=== PATIENT | male | born 1990 | race Caucasian/White ===

== ENCOUNTER 2021-04-20 08:44 | Outpatient (CLI) | payer OTHER | END 2021-04-20 08:45 | disposition critical access hospital (66) | LOC: EMS 08:44 | DX: M54.50 Low back pain, unspecified (principal); W17.89XA Other fall from one level to another, initial encounter; Y92.89 Other specified places as the place of occurrence of the external cause | CPT/HCPCS: A0425; A0427 ==

== ENCOUNTER 2021-04-20 09:13 | Emergency (ER) | payer OTHER ==
[2021-04-20] MEDS ORDERED: KETOROLAC 30 MG/ML VIAL IVP STA ×2 (09:47→20:21)
[2021-04-20] MEDS ORDERED: SODIUM CHLORIDE 0.9% 1,000 ML IV STA (09:47)
[2021-04-20] MEDS ORDERED: HYDROmorphone 1 MG/ML CARPUJECT IVP STA ×2 (09:47→12:31)
--- NOTE | 2021-04-20 09:50 | ED Physician Documentation ---
PD HPI Fall - Stated complaint Stated Complaint: FALL - Chief complaint Chief Complaint: Trauma Ch/Bk - History obtained from History obtained from: Patient - History of Present Illness Mechanism of injury: Slipped Fall distance: 10 to 15ft (fell from roof about 10 feet, landing on back/torso.) Timing - onset: Today ([employer]) Injury(ies) location: Back (mostly thoracolumbar area but also some pain in mid scapular area. Mild pain in neck. No headache.). No: Head, Chest, Abdomen Quality of pain: Pain, Aching Associated symptoms: Other (mainly pain in back with movement). No: LOC, AMS, Weakness, Paresthesias Worsens with: Movement Contributing factors: No: Anticoagulated, Intoxicated Similar symptoms before: Has not had sx before Recently seen: Not recently seen Review of Systems Constitutional: denies: Fever, Chills Nose: denies: Rhinorrhea / runny nose, Congestion Throat: denies: Sore throat Cardiac: denies: Chest pain / pressure, Palpitations Respiratory: denies: Dyspnea, Cough GI: denies: Abdominal Pain, Nausea, Vomiting Skin: denies: Abrasion (s), Laceration (s) Musculoskeletal: reports: Neck pain, Back pain Neurologic: denies: Focal weakness, Numbness, Confused, Altered mental status, Headache, Head injury, LOC PD PAST MEDICAL HISTORY - Past Medical History Cardiovascular: None Respiratory: None Neuro: None Endocrine/Autoimmune: None Musculoskeletal: None - Present Medications Home Medications: Ambulatory Orders Medication Instructions Recorded Confirmed No Known Home Medications 04/20/21 04/20/21 - Allergies Allergies/Adverse Reactions: Allergies Allergy/AdvReac Type Severity Reaction Status Date / Time amoxicillin Allergy Hives Verified 04/20/21 09:21 PD ED PE NORMAL - Vitals Vital signs reviewed: Yes - General General: Alert and oriented X 3, Well developed/nourished, Other (appears in pain with movement of torso. ) - HEENT HEENT: Atraumatic, PERRL, EOMI - Neck Neck: Supple, no meningeal sign, No adenopathy, Other (mildly tender lower cervical area without deformity. ) - Cardiac Cardiac: RRR, No murmur - Respiratory Respiratory: Clear bilaterally - Abdomen Abdomen: Soft, Non tender - Male Male : Deferred - Rectal Rectal: Deferred - Back Back: No CVA TTP, Other (He is tender in the mid thoracolumbar area without any obvious deformity. No abrasions or bruises seen on logroll.) - Derm Derm: Normal color, Warm and dry - Extremities Extremities: No tenderness to palpate, Normal ROM s pain - Neuro Neuro: Alert and oriented X 3, No motor deficit, No sensory deficit, Normal speech, Other (normal reflexes at knees and elbows. ) Eye Opening: Spontaneous Motor: Obeys Commands Verbal: Oriented GCS Score: 15 Results - Vitals Vitals: Vital Signs - 24 hr 04/20/21 04/20/21 04/20/21 09:14 09:47 11:47 Temperature 36.4 C L Heart Rate 53 L 56 L 68 Respiratory 13 16 20 Rate Blood Pressure 125/80 126/76 122/66 O2 Saturation 96 99 97 04/20/21 04/20/21 13:37 16:12 Temperature Heart Rate 105 H 70 Respiratory 18 14 Rate Blood Pressure 135/79 H 148/92 H O2 Saturation 96 92 Oxygen O2 Source Room air - Labs Labs: Laboratory Tests 04/20/21 04/20/21 10:17 10:17 WBC 10.2 RBC 4.79 Hgb 14.4 Hct 42.2 MCV 88.1 MCH 30.1 MCHC 34.1 RDW 12.0 Plt Count 191 MPV 9.5 Neut # (Auto) 7.9 H Lymph # (Auto) 1.4 L [place] # (Auto) 0.7 Eos # (Auto) 0.1 Baso # (Auto) 0.0 Absolute Nucleated RBC 0.00 Nucleated RBC % 0.0 Sodium 138 Potassium 4.1 Chloride 104 Carbon Dioxide 27 Anion Gap 7.0 BUN 12 Creatinine 1.0 Estimated GFR (MDRD) 87 L Glucose 124 H Calcium 8.5 Total Bilirubin 0.6 AST 21 ALT 21 Alkaline Phosphatase 37 L Total Protein 6.6 L Albumin 4.2 Globulin 2.4 Albumin/Globulin Ratio 1.8 Lipase 30 - Rads (name of study) cervical spine CT Radiology: Prelim report reviewed (no acute process), See rad report chest CT Radiology: Prelim report reviewed (no acute thoracic injury. ), See rad report lumbar spine CT Radiology: Prelim report reviewed (L1 anterior wedge compression deformity with 40% loss of height and retropulsion of bone causing moderate canal narrowing. ), See rad report PD MEDICAL DECISION MAKING - ED course Complexity details: reviewed results (L1 40% compression fracture with some retropulsion. Remains normal neuro exam on repeat after scanning. He is more comfortable after IV pain medicines. At this point I would want consultation with spine surgery.), re-evaluated patient, considered differential, d/w patient, d/w outplacement consultant (Long time awaiting spine surgery evaluation of the imaging and to call back. Transfer center stated they were in surgery. It is now been about 6 or 7 hours waiting specialist evaluation of the images.) Departure - Departure Clinical Impression: Fall from roof Qualifiers: Encounter type: initial encounter Qualified Code(s): W13.2XXA - Fall from, out of or through roof, initial encounter Lumbar compression fracture Qualifiers: Encounter type: initial encounter Lumbar vertebra fracture level: L1 Qualified Code(s): S32.010A - Wedge compression fracture of first lumbar vertebra, initial encounter for closed fracture Condition: Stable Record reviewed to determine appropriate education?: Yes Instructions: ED Fx Comp Vertebral
[2021-04-20 10:36] LABS: ALBUMIN 4.2 g/dL (3.2-5.5); ALBUMIN/GLOBULIN RATIO 1.8 (1.0-2.2); BILIRUBIN,TOTAL 0.6 mg/dL (0.2-1.0); CALCIUM 8.5 mg/dL (8.5-10.3); POTASSIUM 4.1 mmol/L (3.5-5.0); TOTAL PROTEIN 6.6 g/dL (6.7-8.2)
[2021-04-20 10:40] LABS: BASOPHILS % (AUTO) 0.2 %; EOSINOPHILS # (AUTO) 0.1 10^3/uL (0.0-0.7); EOSINOPHILS % (AUTO) 0.7 %; HCT - HEMATOCRIT 42.2 % (42.0-52.0); HGB - HEMOGLOBIN 14.4 g/dL (14.0-18.0); LYMPHOCYTES # (AUTO) 1.4 10^3/uL (1.5-3.5); MEAN CORPUSCULAR HEMOGLOBIN 30.1 pg (27.0-31.0); MEAN CORPUSCULAR HGB CONC 34.1 g/dL (32.0-36.0); MEAN CORPUSCULAR VOLUME 88.1 fL (80.0-94.0); MEAN PLATELET VOLUME 9.5 fL (7.4-11.4); MONOCYTES # (AUTO) 0.7 10^3/uL (0.0-1.0); MONOCYTES % (AUTO) 6.8 %; NEUTROPHILS # (AUTO) 7.9 10^3/uL (1.5-6.6); NEUTROPHILS % (AUTO) 77.6 %; PLT - PLATELET COUNT 191 10^3/uL (130-450); RED BLOOD COUNT 4.79 10^6/uL (4.70-6.10); WHITE BLOOD COUNT 10.2 x10^3/uL (4.8-10.8)
[2021-04-20] MEDS ORDERED: IOPAMIDOL-300 100 ML VIAL ONE (10:47)
--- NOTE | 2021-04-20 11:20 | CT Report ---
PROCEDURE: CERVICAL SPINE WO INDICATIONS: fall from roof, neck pain TECHNIQUE: Noncontrast 3 mm thick sections acquired from the skull base to the T4 level. Sagittal and coronal r eformats were then constructed. For radiation dose reduction, the following was used: automated exp osure control, adjustment of mA and/or kV according to patient size. COMPARISON: None. FINDINGS: Image quality: Excellent. Bones: No fractures or dislocations. Straightening of normal cervical lordosis is seen. Visualized s uperior ribs are intact. Soft tissues: Prevertebral soft tissues are normal in thickness. No paravertebral hematomas. No ap ical pneumothoraces. IMPRESSION: No acute cervical spine fracture or dislocation. Reviewed by: Terrell Cardenas MD on 04/20/2021 11:18 AM [facility] Approved by: Terrell Cardenas MD on 04/20/2021 11:18 AM PST Station ID: [id number]
--- NOTE | 2021-04-20 11:32 | CT Report ---
PROCEDURE: CHEST W INDICATIONS: fall from roof/ chest, back pain CONTRAST: IV CONTRAST: Optiray 320 ml: 100 PO CONTRAST: *NO PO CONTRAST TECHNIQUE: After the administration of intravenous contrast, 1 mm axial images were acquired from the pulmonary apices through the posterior costophrenic angles. Axial 5 mm soft tissue kernel reconstructions were performed as well as 8 mm axial MIP and coronal and sagittal 5 mm reformations. For radiation dose reduction, the following was used: automated exposure control, adjustment of mA and/or kV according to patient size. COMPARISON: None. FINDINGS: Image quality: Excellent. Lungs and pleura: No acute air space opacities. Dependent atelectasis in posterior aspect of bilater al lung harkins are seen. No pleural effusions or pneumothorax. Central and peripheral airways are p atent and normal in caliber. Mediastinum: Heart size is mildly enlarged. No pericardial effusion. There is no mediastinal hemat bryan. No mediastinal or hilar adenopathy by size criteria. Thoracic aorta and central pulmonary arter ies are normal in size. Esophagus is normal in caliber. No hiatal hernia. Bones and chest wall: No suspicious bony lesions. Acute-appearing anterior wedge compression deformi ty at L1 level is seen with up to 40% loss of L1 vertebral body height anteriorly. There is retropuls ion of posterior wall of L1 vertebral body causing moderate central canal stenosis at this level. No axillary or supraclavicular adenopathy by size criteria. The thyroid is normal in size and there are no incidental findings.. Abdomen: Please refer to CT of abdomen and pelvis study performed on the same day. IMPRESSION: 1. Acute anterior wedge compression deformity at L1 level with up to 40% loss of L1 vertebral body he ight anteriorly. Retropulsion of L1 posterior wall causing moderate central canal stenosis at L1 leve l. No acute rib fracture is seen. No acute compression fracture is seen in thoracic spine vertebral b odies. 2. Dependent atelectasis in posterior aspect of bilateral lung harkins. No focal infiltrate, pleural e ffusion or pneumothorax. 3. Heart size is enlarged, no pericardial effusion. No mediastinal hematoma. No thoracic aortic aneur ysm or dissection. CLINICAL RECOMMENDATION STATEMENTS: In patients <35 years with an ITN detected on CT, MRI, or extrathyroidal ultrasound, the Committee re commends further evaluation with dedicated thyroid ultrasound if the nodule is "e1 cm and has no susp icious imaging features, and if the patient has normal life expectancy. In patients "e35 years with an ITN detected on CT, MRI, or extrathyroidal ultrasound, the Committee r ecommends further evaluation with dedicated thyroid ultrasound if the nodule is "e1.5 cm and has no s uspicious imaging features, and if the patient has normal life expectancy. (ACR, 2014) Reviewed by: Terrell Cardenas MD on 04/20/2021 11:31 AM PST Approved by: Terrell Cardenas MD on 04/20/2021 11:31 AM PST Station ID: [id number]
--- NOTE | 2021-04-20 11:36 | CT Report ---
PROCEDURE: Abdomen/Pelvis W INDICATIONS: fall from roof; back/chest pain CONTRAST: IV CONTRAST: Optiray 320 ml: 100 PO CONTRAST: *NO PO CONTRAST TECHNIQUE: After the administration of contrast, 5 mm thick sections acquired from the diaphragms to the symphy sis. 5 mm thick coronal and sagittal reformats were acquired. For radiation dose reduction, the fol lowing was used: automated exposure control, adjustment of mA and/or kV according to patient size. COMPARISON: None. FINDINGS: Image quality: Excellent. ABDOMEN: Lung bases: Bibasilar dependent atelectasis is seen. Heart size is enlarged, and no pericardial effus ion. Solid organs: Liver and spleen are normal in size and enhancement. Gallbladder contains multiple pa rtially calcified stones in its dependent portion. No gallbladder wall thickening or pericholecystic fluid. Biliary system is non dilated. Pancreas enhances normally. No adrenal nodules. Kidneys dem onstrate normal size and enhancement, without hydronephrosis. Small bilateral renal cortical cysts a re seen. Peritoneum and bowel: Bowel loops demonstrate normal wall thickness and caliber. No free fluid or a ir. Appendix is visualized and is within normal limits. Nodes and vessels: No retroperitoneal or mesenteric adenopathy by size criteria. Aorta and inferior vena cava are normal in size. Miscellaneous: No ventral hernias. PELVIS: Genitourinary: Bladder wall thickness is normal. Miscellaneous: Small bilateral inguinal hernias are seen containing fat only. No inguinal lymphadenop athy. Bones: No suspicious bony lesions. Acute anterior wedge compression fracture of L1 is seen with retr opulsion of L1 posterior wall causing moderate central canal stenosis at this level. No other vertebr al body compression fracture is seen. Bony pelvis is intact. IMPRESSION: 1. Acute anterior wedge compression deformity involving L1 vertebral body with up to 40% loss of L1 v ertebral body height anteriorly. There is retropulsion of L1 posterior wall causing moderate central canal stenosis at this level. No other vertebral body compression fracture is seen. 2. No other fracture or dislocation is noted in abdomen or pelvis. Pelvic ring is intact. 3. No solid organ injury is seen in abdomen or pelvis. No free fluid or free air. 4. Cholelithiasis without CT evidence of acute cholecystitis. 5. No abnormal bowel wall thickening. No free fluid or free air. Normal appendix. Reviewed by: Terrell Cardenas MD on 04/20/2021 11:34 AM PST Approved by: Terrell Cardenas MD on 04/20/2021 11:34 AM PST Station ID: [id number]
[2021-04-20] MEDS ORDERED: IOPAMIDOL-300 100 ML VIAL IVP ONE (11:51)
--- NOTE | 2021-04-20 18:51 | CT Report ---
PROCEDURE: LUMBAR SPINE W INDICATIONS: recon for L1 fracture CONTRAST: IV CONTRAST: Isovue 300 ml: 100 PO CONTRAST: *NO PO CONTRAST TECHNIQUE: After the administration of intravenous Isovue contrast, 3 mm thick sections acquired from the T12 le allen to the sacrum. Sagittal and coronal reformats were constructed. For radiation dose reduction, t he following was used: automated exposure control, adjustment of mA and/or kV according to patient s ize. COMPARISON: CT abdomen pelvis 04/20/2021.. FINDINGS: Image quality: Excellent. Bones: There is a superior endplate burst fracture of the L1 vertebral body redemonstrated with up t o approximately 40% loss of height. There is mild superior displacement of the superior endplate of t he L1 vertebral body with associated moderate bony spinal canal narrowing. No other fractures identif ied. No suspicious lytic or blastic bony lesions. Central spinal caliber is of normal overall calibe r. No pars defects. There is posterior loss of height of the T12-L1 intervertebral disc secondary to displacement of the superior endplate of L1. The intervertebral discs otherwise demonstrate preserved height. Soft tissues: No retroperitoneal masses or hematomas. Visualized aorta is normal in caliber. IMPRESSION: 1. Acute superior endplate compression fracture of the L1 vertebral body redemonstrated with associat ed moderate bony spinal canal narrowing secondary to slight posterior displacement of the superior en dplate. Reviewed by: Kingston Ritchie MD on 04/20/2021 5:50 PM [facility] Approved by: Kingston Ritchie MD on 04/20/2021 5:50 PM [facility] Station ID: [id number]
[2021-04-20] MEDS ORDERED: methocarbamoL 500 MG TABLET PO STA (21:08)
--- NOTE | 2021-04-20 21:11 | ED Physician Documentation ---
ED Addendum - Addendum Addendum: 04/20/21 21:[address] Bj Titus, spine surgery at [facility]. States patient does not require bracing or to be evaluated at [facility]. States that this is a stable injury. Patient is neurologically intact here. We will place him on pain medication, muscle relaxants for home. He will follow up in 2 to 3 weeks with a air quality specialist for repeat evaluation. I am prescribing a short course of short-acting opioid pain medication for this patient. I have reviewed the patients [employer] and no concerning findings were noted. I have discussed that the opioids are for short term therapy only, and will not be refilled from the ED. patient counseled regarding signs and symptoms for which I believe and urgent re-evaluation would be necessary. Patient with good understanding of and agreement to plan and is comfortable going home at this time This document was made in part using voice recognition software. While efforts are made to proofread this document, sound alike and grammatical errors may occur. Departure - Departure Disposition: 01 Home, Self Care Clinical Impression: Fall from roof Qualifiers: Encounter type: initial encounter Qualified Code(s): W13.2XXA - Fall from, out of or through roof, initial encounter Lumbar compression fracture Qualifiers: Encounter type: initial encounter Lumbar vertebra fracture level: L1 Qualified Code(s): S32.010A - Wedge compression fracture of first lumbar vertebra, initial encounter for closed fracture Condition: Good Instructions: ED Fx Comp Vertebral Follow-Up: [facility] [Provider Group] Vladimir Titus MD [Physician No Access] - (in 2-3 weeks ) Prescriptions: Meloxicam [Mobic] 15 mg PO DAILY PRN #20 tablet PRN Reason: pain Oxycodone HCl/Acetaminophen [Percocet 5-325 mg Tablet] 1 - 2 each PO Q6H PRN #14 tablet PRN Reason: pain methocarbamoL [Robaxin] 500 mg PO Q6H PRN #20 tablet PRN Reason: muscle spasm Ondansetron Odt [Zofran] 4 mg TL Q6H PRN #10 tablet PRN Reason: Nausea / Vomiting Comments: Please follow-up with [facility] [place] for further care. Your primary care provider may refer you to a closer air quality specialist as well. I spoke with Dr. Sarkis samuels. If you do not hear from them by early next week, you can call the spine clinic at area code [phone] to schedule an appointment in 2 to 3 weeks. They should call you in the next 2 to 3 days. The address is [address] [place] [address], fifth floor in [facility]. You need to limit your activity at home. No climbing on ladders. No strenuous physical exertion. Limit lifting to no more than 5 pounds. Your prescriptions were sent to [facility] in [place]. I am prescribing a short course of narcotic pain medication for you. These are potentially dangerous and addictive medications that should be used carefully. These medications may constipate you. Take an zrve-[id number] stool softener (docusate) twice daily with plenty of water while taking these medications. If you go 24 hours without a bowel movement, take [id number] miralax, per package instructions. Do not drink or drive while taking these medications. If you received narcotic or sedating medications while in the emergency department, do not drive for 24 hours. Store this medication in a safe, secure place and out of reach of children. It is a violation of federal law to give or sell this medication to another person or to use in a manner other than prescribed. The ED will not refill narcotic prescriptions, including prescriptions lost or stolen. To dispose of unwanted medications: 1. [facility] at [address] in [place] has a medication drop box. They accept prescription medications (in pill form) Sunday through Sunday 9:00 a.m. to 5:00 p.m. 2. The [facility] [employer] accepts prescription medications (in pill form only) for disposal year round. Call for more information. 3. Contact the [facility] for the next [facility] sponsored prescription drug collection event. , [phone], or [phone];
[2021-04-20 21:23] VITALS: BP 149/94
== END 2021-04-20 21:26 | disposition home or self-care (01) ==
LOC: ED 09:13
DX: S32.010A Wedge compression fracture of first lumbar vertebra, initial encounter for closed fracture (principal); W13.2XXA Fall from, out of or through roof, initial encounter
CPT/HCPCS: 36415; 71260; 72125; 72132; 74177; 80053; 83690; 85025; 96374; 96375; 96376; 99284; A9270; J1170; Q9967

== ENCOUNTER 2021-11-08 08:00 | Outpatient (CLI) | payer OTHER ==
--- NOTE | 2021-11-08 15:28 | XRAY Report ---
PROCEDURE: Chest 2 View X-Ray INDICATIONS: COUGH, COVID+ TECHNIQUE: 2 view(s) of the chest. COMPARISON: None. FINDINGS: Surgical changes and devices: None. Lungs and pleura: No pleural effusions or pneumothorax. Lungs are clear. Mediastinum: Mediastinal contours are normal. Heart size is normal. Bones and chest wall: Remote L1 compression deformity. No acute osseous finding. IMPRESSION: No acute cardiopulmonary process demonstrated radiographically. Remote L1 compression fracture. Reviewed by: James Forrester MD on 11/08/2021 3:27 PM PDT Approved by: James Forrester MD on 11/08/2021 3:27 PM PDT Station ID: [id number]
== END 2021-11-08 23:59 | disposition home or self-care (01) ==
LOC: DI.S 08:00
PROVIDERS: ATTEND Physician Assistant Medical
DX: U07.1 COVID-19 (principal)

== ENCOUNTER 2022-08-29 07:00 | Outpatient (CLI) | payer OTHER | END 2022-08-29 23:59 | disposition home or self-care (01) | LOC: LAB.S 07:00 | PROVIDERS: ATTEND Emergency Medicine | DX: J02.9 Acute pharyngitis, unspecified (principal) | CPT/HCPCS: 87070 ==

== ENCOUNTER 2023-12-29 06:48 | Emergency (ER) | payer OTHER ==
--- NOTE | 2023-12-29 07:41 | XRAY Report ---
PROCEDURE: Chest 1V INDICATIONS: Chest pain TECHNIQUE: One view of the chest was acquired. COMPARISON: 10/31/2021. FINDINGS: Surgical changes and devices: None. Lungs and pleura: No pleural effusions or pneumothorax. Mild diffuse interstitial prominence. Mediastinum: Mediastinal contours appear normal. Heart size is normal. Bones and chest wall: No suspicious bony lesions. Overlying soft tissues appear unremarkable. IMPRESSION: Mild diffuse interstitial prominence. Reviewed by: Antonio Mosquera MD on 12/29/2023 7:39 AM PDT Approved by: Antonio Mosquera MD on 12/29/2023 7:39 AM PDT Station ID: [id number]
[2023-12-29 07:46] LABS: ALBUMIN 4.3 g/dL (3.2-5.5); ALBUMIN/GLOBULIN RATIO 1.7 (1.0-2.2); BILIRUBIN,TOTAL 0.7 mg/dL (0.2-1.0); CALCIUM 9.2 mg/dL (8.5-10.3); CREATININE 1.1 mg/dL (0.6-1.3); POTASSIUM 3.9 mmol/L (3.5-4.5); TOTAL PROTEIN 6.8 g/dL (6.4-8.9)
[2023-12-29 07:51] LABS: TROPONIN I HIGH SENSITIVITY 3.1 ng/L (2.3-19.7)
[2023-12-29 08:00] LABS: BASOPHILS % (AUTO) 0.2 %; EOSINOPHILS # (AUTO) 0.2 10^3/uL (0.0-0.7); EOSINOPHILS % (AUTO) 1.6 %; HCT - HEMATOCRIT 42.9 % (42.0-52.0); HGB - HEMOGLOBIN 14.9 g/dL (14.0-18.0); LYMPHOCYTES # (AUTO) 2.7 10^3/uL (1.5-3.5); LYMPHOCYTES % (AUTO) 25.7 %; MEAN CORPUSCULAR HEMOGLOBIN 29.6 pg (27.0-31.0); MEAN CORPUSCULAR HGB CONC 34.7 g/dL (32.0-36.0); MEAN CORPUSCULAR VOLUME 85.3 fL (80.0-94.0); MEAN PLATELET VOLUME 9.6 fL (7.4-11.4); MONOCYTES % (AUTO) 9.6 %; NEUTROPHILS # (AUTO) 6.7 10^3/uL (1.5-6.6); NEUTROPHILS % (AUTO) 62.6 %; PLT - PLATELET COUNT 212 10^3/uL (130-450); RED BLOOD COUNT 5.03 10^6/uL (4.70-6.10); RED CELL DISTRIBUTION WIDTH 12.1 % (12.0-15.0); WHITE BLOOD COUNT 10.7 x10^3/uL (4.8-10.8)
--- NOTE | 2023-12-29 08:15 | ED Physician Documentation ---
PD HPI CHEST PAIN - Stated complaint Stated Complaint: CP/N/DIZZY - Chief complaint Chief Complaint: Cardiac - History obtained from History obtained from: Patient - History of Present Illness Timing - onset: Today, Last night Timing - onset during: Rest (he had done some lifting and work with arms yesterday but no pain at that time. onset during evening, night and worse during the middle of night into this morning.) Timing - duration: Hours Timing - details: Gradual onset, Still present Quality: Aching, Sharp, Pain Location: Left chest, Left shoulder/arm Radiation: Left upper extremity Worsened by: Movement, Palpation. No: Inspiration Associated symptoms: No: Shortness of air, Diaphoresis, Nausea, Feeling faint / dizzy Similar symptoms before: Has not had sx before Review of Systems Constitutional: denies: Fever, Chills Nose: denies: Rhinorrhea / runny nose, Congestion Throat: denies: Sore throat Respiratory: denies: Cough GI: denies: Abdominal Pain, Nausea, Vomiting Musculoskeletal: denies: Extremity swelling Neurologic: denies: Focal weakness, Numbness PD PAST MEDICAL HISTORY - Past Medical History Cardiovascular: None Respiratory: None Neuro: None Endocrine/Autoimmune: None Musculoskeletal: None - Past Surgical History Past Surgical History: No - Present Medications Home Medications: Ambulatory Orders Medication Instructions Recorded Confirmed Loratadine [Claritin] 10 mg PO DAILY 12/29/23 12/29/23 Oxymetazoline HCl [Afrin] 15 ml NS DAILY 12/29/23 12/29/23 - Allergies Allergies/Adverse Reactions: Allergies Allergy/AdvReac Type Severity Reaction Status Date / Time amoxicillin Allergy Hives Verified 12/29/23 07:26 - Social History Does the pt smoke?: No Smoking Status: Never smoker - Immunizations Immunizations are current?: Yes - POLST Patient has POLST: No PD ED PE NORMAL - Vitals Vital signs reviewed: Yes - General General: Alert and oriented X 3, No acute distress, Well developed/nourished - Neck Neck: Supple, no meningeal sign, No adenopathy - Cardiac Cardiac: RRR, No murmur - Respiratory Respiratory: No respiratory distress, Clear bilaterally, Other (left parasternal chestwall with tdnerness at costchoncral. No rash redness nor sores. Worse with shoulder movement. ) - Abdomen Abdomen: Soft, Non tender - Derm Derm: Normal color, Warm and dry - Extremities Extremities: No edema, No calf tenderness / cord Results - Vitals Vitals: Vital Signs - 24 hr 12/29/23 12/29/23 06:55 08:41 Temperature 36.1 C L 36.3 C L Heart Rate 66 68 Respiratory 14 18 Rate Blood Pressure 137/83 H 120/73 O2 Saturation 97 96 Oxygen O2 Source Room air - EKG (time done) 06:58 EKG releavant findings:: EKG personally interpreted by author of this note. Relevant findings are: Rate: Rate (enter#) (64) Rhythm: NSR [place]: Normal Intervals: Normal [place] QRS: Normal Ischemia: Normal ST segments. No: ST elevation c/w ischemia, ST depression - Labs Labs: Laboratory Tests 12/29/23 12/29/23 07:20 07:20 WBC 10.7 RBC 5.03 Hgb 14.9 Hct 42.9 MCV 85.3 MCH 29.6 MCHC 34.7 RDW 12.1 Plt Count 212 MPV 9.6 Neut # (Auto) 6.7 H Lymph # (Auto) 2.7 [place] # (Auto) 1.0 Eos # (Auto) 0.2 Baso # (Auto) 0.0 Absolute Nucleated RBC 0.00 Nucleated RBC % 0.0 Sodium 136 Potassium 3.9 Chloride 104 Carbon Dioxide 25 Anion Gap 7.0 BUN 14 Creatinine 1.1 Estimated GFR (MDRD) 76 L Glucose 110 H Calcium 9.2 Total Bilirubin 0.7 AST 22 ALT 39 Alkaline Phosphatase 44 Troponin I High Sens 3.1 Total Protein 6.8 Albumin 4.3 Globulin 2.5 Albumin/Globulin Ratio 1.7 Lipase 36 - Rads (name of study) chest xray Relevant Findings:: EMP independent interpretation of test (no acute findings.) PD Medical Decision Making - ED course Complexity details: reviewed results (no acute process on CXR. ECG without ischemic changes. Trop negative. ), considered differential (left chest pain with character seeming muscular (increased with position and shoulder/arm movement; not associated with cough, fever, wheezing. ), d/w patient ED course: pain with muscular character and he was doing some lifting and carrying yesterday earlier. Normal ECG, CXR, Trop, Lipase, etc exclude more concerning daignoses. Departure - Departure Disposition: 01 Home, Self Care Clinical Impression: Anterior chest wall pain, Ruled out for myocardial infarction Condition: Stable Record reviewed to determine appropriate education?: Yes Instructions: ED Strain Chest Wall Follow-Up: Sana Turpin ARNP [Primary Care Provider] - Comments: Your EKG, chest x-ray, blood tests are normal, in particular 1 called troponin which is very sensitive for detecting any heart injury/heart attack. Your chest x-ray would be able to detect collapsed lung or fluid in the lungs heart failure etc. Your EKG also was normal with a normal rhythm and no signs of injury/heart attack. At this point the more major problems are excluded. I has a character sounding like musculoskeletal. Presume a muscle strain deeper in the chest. No signs of upper abdominal problem based on blood test and exam such as pancreas gallbladder or liver. I would suggest using some anti-inflammatory such as ibuprofen or naproxen 2 to 3 tablets [id number] 3 times daily with food for the next several days to week. Add Tylenol 500 650 mg 4 times daily if needed for pain. Activity as tolerated. I would anticipate a downtrending of the symptoms over the next few days and resolution over hopefully at most 3 to 5 days. Recheck if not improving in that timeframe and or if other symptoms develop in the meanwhile. Forms: PCP List Discharge Date/Time: 12/29/23 08:41
[2023-12-29] MEDS: KETOROLAC 30 MG/ML VIAL IVP STA (08:32)
[2023-12-29] MEDS: ACETAMINOPHEN 325 MG TABLET PO STA (08:32)
[2023-12-29 08:46] VITALS: BP 120/73; O2SAT 96
== END 2023-12-29 08:41 | disposition home or self-care (01) ==
LOC: ED 06:48
DX: R07.89 Other chest pain (principal)
CPT/HCPCS: 36415; 71045; 80053; 83690; 84484; 85025; 93005; 96374; 99284; A9270